=== PATIENT | male | born 1985 | race Caucasian/White ===

== ENCOUNTER 2019-08-08 19:41 | Emergency (ER) | payer MEDICAID ==
[~2019-08-08] VITALS: Ht 167.6 cm; Wt 85.3 kg
[2019-08-08 21:50] VITALS: Ht 167.6 cm; Wt 85.3 kg
[2019-08-08 23:23] VITALS: BP 132/81
== END 2019-08-08 23:23 | disposition home or self-care (01) ==
LOC: ED 19:41
DX: U07.1 COVID-19 (principal); J12.89 Other viral pneumonia
CPT/HCPCS: J1885; J7512; Q0092

== ENCOUNTER 2019-08-13 12:04 | Emergency (ER) | payer MEDICAID | END 2019-08-13 12:20 | disposition left against medical advice (07) | LOC: ED 12:04 | DX: Z53.21 Procedure and treatment not carried out due to patient leaving prior to being seen by health care provider (principal) ==